=== PATIENT | male | born 1945 | race Caucasian/White ===

== ENCOUNTER 2019-01-01 10:06 | Inpatient (IN) | payer MEDICARE, OTHER ==
[~2019-01-01] VITALS: Ht 165.1 cm; Wt 84.0 kg
[~2019-01-01 10:06] MED LIST: AMLO5TAB66 PO; ASPI-482 PO; CARV3 PO; CLOP75TA3 PO; DOXA2TAB PO; GLIM4 PO; ROSU20TA23 PO; SITA100 PO; TRAM50TA4 PO
[2019-01-01] MEDS ORDERED: QUET50TA15 PO (10:34)
[2019-01-01 10:48] LABS: GLUCOSE,POINT OF CARE 250 MG/DL (70-110)
[2019-01-01 11:07] LABS: BASOPHILS % (AUTO) 0.7 % (0.0-2.0); EOSINOPHILS % (AUTO) 1.8 % (1.0-6.0); HEMATOCRIT 49.4 % (41-53); HEMOGLOBIN 16.8 g/dL (13.5-17.5); LYMPHOCYTES # (AUTO) 2.7 K/uL (1.0-4.8); MEAN CORPUSCULAR HEMOGLOBIN 31.1 pg (26.0-34.0); MEAN CORPUSCULAR VOLUME 92 fL (80-100); MONOCYTES # (AUTO) 0.7 K/uL (0.1-1.0); MONOCYTES % (AUTO) 7.4 % (2.0-9.0); NEUTROPHILS # (AUTO) 5.3 K/uL (1.8-7.7); NEUTROPHILS % (AUTO) 60.1 % (40.0-70.0); PLATELET COUNT (AUTO) 287 K/uL (150-450); RED BLOOD CELL COUNT(AUTO) 5.39 MIL/uL (4.50-5.90); RED CELL DISTRIBUTION WIDTH 14.1 % (11.5-14.5)
[2019-01-01 11:12] LABS: ANION GAP 11 mmol/L (8-16); CALCIUM, TOTAL 9.1 mg/dL (8.8-10.5); CARBON DIOXIDE 25 mmol/L (22-29); CHLORIDE 100 mmol/L (98-107); CREATININE 1.49 mg/dL (0.60-1.30); GLOMERULAR FILTR. RATE CALC 46 mL/min (>60); GLUCOSE,RANDOM 251 mg/dL (70-110); POTASSIUM 3.7 mmol/L (3.5-5.1); SODIUM SERUM 136 mmol/L (136-145); UREA NITROGEN, BLOOD 14 mg/dL (7-18)
[2019-01-01 11:27] LABS: ALANINE AMINOTRANSFERASE 21 U/L (12-78); ALBUMIN 3.4 g/dL (3.4-5.0); ALKALINE PHOSPHATASE 109 U/L (46-116); ASPARTATE AMINOTRANSFERASE 23 U/L (15-37); BILIRUBIN,TOTAL 1.3 mg/dL (0.1-1.0); THYROID STIMULATING HORMONE 6.94 uIU/mL (0.36-3.74); TOTAL PROTEIN, SERUM 8.1 g/dL (6.4-8.2)
[2019-01-01] MEDS ORDERED: IBUPROFEN 400 MG TABLET PO PRN ×2 (11:30→14:30)
[2019-01-01] MEDS ORDERED: HALOPERIDOL 5 MG TABLET PO PRN (11:30)
[2019-01-01] MEDS ORDERED: LORazepam 2 MG TABLET PO PRN (11:30)
[2019-01-01] MEDS ORDERED: ZOLPIDEM TARTRATE 10 MG TABLET PO PRN (11:30)
[2019-01-01] MEDS ORDERED: ACETAMINOPHEN 325 MG TABLET PO PRN ×2 (11:30→14:30)
[2019-01-01 12:28] LABS: GLUCOSE,POINT OF CARE 241 MG/DL (70-110)
[2019-01-01 13:02] VITALS: BP 138/88
[2019-01-01] MEDS ORDERED: PNEUMOCOCCAL VACCINE POLYVALENT 0.5 ML VIAL [PPSV23] IM ONE (13:30)
[2019-01-01] MEDS ORDERED: NICOTINE 14 MG/24 HOUR PATCH TD PRN (14:30)
[2019-01-01] MEDS ORDERED: ALBUTEROL SULFATE HFA 90 MCG/PUFF 8 GM INHALER IH PRN (14:30)
[2019-01-01] MEDS ORDERED: CloNIDine HCL 0.1 MG TABLET PO PRN (14:30)
[2019-01-01] MEDS ORDERED: MAGNESIUM HYDROXIDE SUSPENSION 30 ML UDCUP PO PRN (14:30)
[2019-01-01] MEDS ORDERED: DOCUSATE SODIUM 100 MG CAPSULE PO PRN (14:30)
[2019-01-01] MEDS ORDERED: GuaiFENesin/D-METHORPHAN [SUGAR-FREE] 200-20MG/10 ML SYRUP UDCUP PO PRN (14:30)
[2019-01-01] MEDS ORDERED: MAG HYDROX/AL HYDROX/SIMETH ES 30 ML SUSPENSION UDCUP PO PRN (14:30)
[2019-01-01] MEDS ORDERED: DEXTROSE 50%-WATER 25 GM/50 ML SYRINGE IVP PRN (14:30)
[2019-01-01] MEDS ORDERED: ONDANSETRON HCL 4 MG TABLET PO PRN (14:30)
[2019-01-01] MEDS ORDERED: LOPERAMIDE HCL 2 MG CAPSULE PO PRN (14:30)
[2019-01-01] MEDS ORDERED: PETROLATUM,WHITE 71 GM JELLY TP PRN (14:30)
[2019-01-01] MEDS: QUEtiapine FUMARATE 25 MG TABLET PO SCH (16:53)
[2019-01-01 17:17] VITALS: BP 157/99
[2019-01-01 17:18] LABS: GLUCOMETER DEV NAME(LOC) 3EX.; GLUCOSE,POINT OF CARE 252 MG/DL (70-110)
[2019-01-01 20:43] LABS: GLUCOMETER DEV NAME(LOC) 3EX.; GLUCOSE,POINT OF CARE 223 MG/DL (70-110)
[2019-01-02] VITALS: BP 159/110
[2019-01-02 06:12] LABS: BASOPHILS % (AUTO) 0.6 % (0.0-2.0); EOSINOPHILS % (AUTO) 2.3 % (1.0-6.0); HEMATOCRIT 47.1 % (41-53); HEMOGLOBIN 16.1 g/dL (13.5-17.5); LYMPHOCYTES # (AUTO) 2.7 K/uL (1.0-4.8); MEAN CORPUSCULAR HEMOGLOBIN 31.8 pg (26.0-34.0); MEAN CORPUSCULAR HGB CONC 34.2 G/dL (31.0-37.0); MEAN CORPUSCULAR VOLUME 93 fL (80-100); MONOCYTES # (AUTO) 0.8 K/uL (0.1-1.0); MONOCYTES % (AUTO) 9.2 % (2.0-9.0); NEUTROPHILS # (AUTO) 5.2 K/uL (1.8-7.7); NEUTROPHILS % (AUTO) 57.9 % (40.0-70.0); PLATELET COUNT (AUTO) 261 K/uL (150-450); RED BLOOD CELL COUNT(AUTO) 5.07 MIL/uL (4.50-5.90); RED CELL DISTRIBUTION WIDTH 13.7 % (11.5-14.5)
[2019-01-02 06:14] LABS: GLUCOMETER DEV NAME(LOC) 3EX.; GLUCOSE,POINT OF CARE 174 MG/DL (70-110)
[2019-01-02 06:38] LABS: BILIRUBIN,TOTAL 1.5 mg/dL (0.1-1.0); CALCIUM, TOTAL 9.1 mg/dL (8.8-10.5); CHOL/HDL RATIO 4.8 (4.2-7.3); CREATININE 1.45 mg/dL (0.60-1.30); POTASSIUM 3.5 mmol/L (3.5-5.1); THYROID STIMULATING HORMONE 3.98 uIU/mL (0.36-3.74); TOTAL PROTEIN, SERUM 7.4 g/dL (6.4-8.2)
[2019-01-02] MEDS: INSULIN LISPRO 100 UNITS/ML SQ PRN ×2 (07:01→11:27)
[2019-01-02 07:14] LABS: HEMOGLOBIN A1C 9.3 % (4.5-6.2)
[2019-01-02 08:00] VITALS: BP 119/70
[2019-01-02] MEDS: QUEtiapine FUMARATE 25 MG TABLET PO SCH ×4 (09:17→17:44)
[2019-01-02] MEDS: ESCITALOPRAM OXALATE 10 MG TABLET PO SCH (09:17)
[2019-01-02 11:43] LABS: GLUCOMETER DEV NAME(LOC) 3EX.; GLUCOSE,POINT OF CARE 239 MG/DL (70-110)
[2019-01-02 12:11] LABS: APPEARANCE,URINE CLEAR (CLEAR); BILIRUBIN,URINE NEGATIVE (NEGATIVE); GLUCOSE, URINE (UA) 250 mg/dL (NEGATIVE); KETONES,URINE NEGATIVE (NEGATIVE); LEUKOCYTE ESTERASE ,URINE NEGATIVE (NEGATIVE); NITRATE,URINE NEGATIVE (NEGATIVE); OCCULT BLOOD,URINE NEGATIVE (NEGATIVE); PH,URINE 6.5 (5.0-8.0); PROTEIN,URINE POS 1+ (NEGATIVE); UROBILINOGEN,URINE 0.2 mg/dL (<=1.0)
[2019-01-02 12:16] LABS: AMPHET/METH SCREEN,URINE NEGATIVE (NEGATIVE); BARBITURATE SCREEN, URINE NEGATIVE (NEGATIVE); BENZODIAZEPINES SCREEN,URINE NEGATIVE (NEGATIVE); CANNABINOID SCREEN,URINE NEGATIVE (NEGATIVE); COCAINE SCREEN,URINE NEGATIVE (NEGATIVE); METHADONE SCREEN, URINE NEGATIVE (NEGATIVE); OPIATE SCREEN,URINE NEGATIVE (NEGATIVE)
[2019-01-02 12:17] LABS: PHENCYCLIDINE SCREEN,URINE NEGATIVE (NEGATIVE)
[2019-01-02 13:28] LABS: BACTERIA,URINE Rare /HPF (None Seen); RBC,URINE 0-2 /HPF (0-2); SQUAMOUS EPITHELIAL CELL,UR Rare /LPF (None Seen); WBC,URINE 0-2 /HPF (0-5)
[2019-01-02 16:28] LABS: GLUCOMETER DEV NAME(LOC) 3EX.; GLUCOSE,POINT OF CARE 142 MG/DL (70-110)
[2019-01-02 16:47] VITALS: BP 117/79
[2019-01-02] MEDS: ROSUVASTATIN CALCIUM 20 MG TABLET PO SCH (20:58)
[2019-01-02] MEDS: DOXAZOSIN MESYLATE 2 MG TABLET PO SCH (20:58)
[2019-01-02 21:03] LABS: GLUCOMETER DEV NAME(LOC) 3EX.; GLUCOSE,POINT OF CARE 232 MG/DL (70-110)
[2019-01-03] MEDS ORDERED: PNEUMOCOCCAL VACCINE POLYVALENT 0.5 ML VIAL [PPSV23] IM ONE (06:15)
[2019-01-03 06:34] LABS: GLUCOMETER DEV NAME(LOC) 3EX.; GLUCOSE,POINT OF CARE 177 MG/DL (70-110)
[2019-01-03] MEDS: INSULIN LISPRO 100 UNITS/ML SQ PRN ×2 (07:13→12:05)
[2019-01-03] MEDS: GLIMEPIRIDE 4 MG TABLET PO SCH (07:14)
[2019-01-03 09:41] VITALS: BP 141/100
[2019-01-03] MEDS: SitaGLIPtin PHOSPHATE 100 MG TABLET PO SCH (09:56)
[2019-01-03] MEDS: ESCITALOPRAM OXALATE 10 MG TABLET PO SCH (09:56)
[2019-01-03] MEDS: CLOPIDOGREL BISULFATE 75 MG TABLET PO SCH (09:56)
[2019-01-03] MEDS: AmLODIPine BESYLATE 5 MG TABLET PO SCH (09:57)
[2019-01-03] MEDS: CARVEDILOL 3.125 MG TABLET PO SCH (09:57)
[2019-01-03] MEDS: QUEtiapine FUMARATE 25 MG TABLET PO SCH ×3 (09:57→16:39)
[2019-01-03] MEDS: ASPIRIN 81 MG CHEWABLE TABLET PO SCH (09:58)
[2019-01-03 11:59] LABS: GLUCOMETER DEV NAME(LOC) 3EX.; GLUCOSE,POINT OF CARE 235 MG/DL (70-110)
[2019-01-03 16:28] LABS: GLUCOMETER DEV NAME(LOC) 3EX.; GLUCOSE,POINT OF CARE 138 MG/DL (70-110)
[2019-01-03 16:50] VITALS: BP 133/79
[2019-01-03 20:29] LABS: GLUCOMETER DEV NAME(LOC) 3EX.; GLUCOSE,POINT OF CARE 179 MG/DL (70-110)
[2019-01-03] MEDS: DOXAZOSIN MESYLATE 2 MG TABLET PO SCH (20:45)
[2019-01-03] MEDS: ROSUVASTATIN CALCIUM 20 MG TABLET PO SCH (20:45)
[2019-01-04 05:30] LABS: GLUCOMETER DEV NAME(LOC) 3E.I; GLUCOSE,POINT OF CARE 156 MG/DL (70-110)
[2019-01-04] MEDS: GLIMEPIRIDE 4 MG TABLET PO SCH (06:30)
[2019-01-04] MEDS: INSULIN LISPRO 100 UNITS/ML SQ PRN (06:33)
[2019-01-04 09:10] VITALS: BP 110/73
[2019-01-04] MEDS: CARVEDILOL 3.125 MG TABLET PO SCH (09:23)
[2019-01-04] MEDS: SitaGLIPtin PHOSPHATE 100 MG TABLET PO SCH (09:23)
[2019-01-04] MEDS: AmLODIPine BESYLATE 5 MG TABLET PO SCH (09:24)
[2019-01-04] MEDS: ESCITALOPRAM OXALATE 10 MG TABLET PO SCH (09:24)
[2019-01-04] MEDS: CLOPIDOGREL BISULFATE 75 MG TABLET PO SCH (09:24)
[2019-01-04] MEDS: ASPIRIN 81 MG CHEWABLE TABLET PO SCH (11:31)
[2019-01-04 16:28] LABS: GLUCOMETER DEV NAME(LOC) 3EX.; GLUCOSE,POINT OF CARE 96 MG/DL (70-110)
[2019-01-04] MEDS: QUEtiapine FUMARATE 25 MG TABLET PO SCH (16:32)
[2019-01-04 16:44] VITALS: BP 112/66
[2019-01-04] MEDS: ROSUVASTATIN CALCIUM 20 MG TABLET PO SCH (20:39)
[2019-01-04] MEDS: DOXAZOSIN MESYLATE 2 MG TABLET PO SCH (20:39)
[2019-01-04 20:41] VITALS: BP 135/84
[2019-01-04 21:03] LABS: GLUCOMETER DEV NAME(LOC) 3EX.; GLUCOSE,POINT OF CARE 122 MG/DL (70-110)
[2019-01-05 01:30] VITALS: BP 123/82
[2019-01-05 06:29] LABS: GLUCOMETER DEV NAME(LOC) 3E.I; GLUCOSE,POINT OF CARE 95 MG/DL (70-110)
[2019-01-05] MEDS: GLIMEPIRIDE 4 MG TABLET PO SCH (06:51)
[2019-01-05 08:00] VITALS: BP 117/84
[2019-01-05] MEDS: CLOPIDOGREL BISULFATE 75 MG TABLET PO SCH (08:27)
[2019-01-05] MEDS: QUEtiapine FUMARATE 25 MG TABLET PO SCH ×2 (08:27→16:38)
[2019-01-05] MEDS: AmLODIPine BESYLATE 5 MG TABLET PO SCH (08:27)
[2019-01-05] MEDS: SitaGLIPtin PHOSPHATE 100 MG TABLET PO SCH (08:27)
[2019-01-05] MEDS: ESCITALOPRAM OXALATE 10 MG TABLET PO SCH (08:27)
[2019-01-05] MEDS: CARVEDILOL 3.125 MG TABLET PO SCH (08:27)
[2019-01-05 11:39] LABS: GLUCOMETER DEV NAME(LOC) 3E.I; GLUCOSE,POINT OF CARE 75 MG/DL (70-110)
[2019-01-05] MEDS: ASPIRIN 81 MG CHEWABLE TABLET PO SCH (12:14)
[2019-01-05] MEDS: INSULIN LISPRO 100 UNITS/ML SQ PRN ×2 (12:21→20:31)
[2019-01-05 16:29] VITALS: BP 111/75
[2019-01-05 16:49] LABS: GLUCOMETER DEV NAME(LOC) 3EX.; GLUCOSE,POINT OF CARE 87 MG/DL (70-110)
[2019-01-05] MEDS: DOXAZOSIN MESYLATE 2 MG TABLET PO SCH (20:19)
[2019-01-05] MEDS: ROSUVASTATIN CALCIUM 20 MG TABLET PO SCH (20:19)
[2019-01-05 20:31] VITALS: BP 130/78
[2019-01-05 20:34] LABS: GLUCOMETER DEV NAME(LOC) 3EX.; GLUCOSE,POINT OF CARE 164 MG/DL (70-110)
[2019-01-06 02:14] VITALS: BP 124/78
[2019-01-06 05:34] LABS: GLUCOMETER DEV NAME(LOC) 3E.I; GLUCOSE,POINT OF CARE 85 MG/DL (70-110)
[2019-01-06] MEDS: GLIMEPIRIDE 4 MG TABLET PO SCH (06:35)
[2019-01-06 08:05] VITALS: BP 116/71
[2019-01-06] MEDS: CLOPIDOGREL BISULFATE 75 MG TABLET PO SCH (09:01)
[2019-01-06] MEDS: ESCITALOPRAM OXALATE 10 MG TABLET PO SCH (09:01)
[2019-01-06] MEDS: SitaGLIPtin PHOSPHATE 100 MG TABLET PO SCH (09:01)
[2019-01-06] MEDS: AmLODIPine BESYLATE 5 MG TABLET PO SCH (09:01)
[2019-01-06] MEDS: CARVEDILOL 3.125 MG TABLET PO SCH (09:01)
[2019-01-06] MEDS: QUEtiapine FUMARATE 25 MG TABLET PO SCH ×2 (09:01→16:23)
[2019-01-06 11:08] LABS: GLUCOMETER DEV NAME(LOC) 3EX.; GLUCOSE,POINT OF CARE 86 MG/DL (70-110)
[2019-01-06] MEDS: ASPIRIN 81 MG CHEWABLE TABLET PO SCH (12:41)
[2019-01-06 16:16] VITALS: BP 109/67
[2019-01-06 16:44] LABS: GLUCOMETER DEV NAME(LOC) 3EX.; GLUCOSE,POINT OF CARE 94 MG/DL (70-110)
[2019-01-06 20:24] LABS: GLUCOMETER DEV NAME(LOC) 3EX.; GLUCOSE,POINT OF CARE 155 MG/DL (70-110)
[2019-01-06] MEDS: ROSUVASTATIN CALCIUM 20 MG TABLET PO SCH (20:28)
[2019-01-06] MEDS: DOXAZOSIN MESYLATE 2 MG TABLET PO SCH (20:28)
[2019-01-06] MEDS: INSULIN LISPRO 100 UNITS/ML SQ PRN (20:38)
[2019-01-07 05:29] LABS: GLUCOMETER DEV NAME(LOC) 3E.I; GLUCOSE,POINT OF CARE 74 MG/DL (70-110)
[2019-01-07] MEDS: GLIMEPIRIDE 4 MG TABLET PO SCH (07:16)
[2019-01-07] MEDS: SitaGLIPtin PHOSPHATE 100 MG TABLET PO SCH (07:45)
[2019-01-07] MEDS: ESCITALOPRAM OXALATE 20 MG TABLET PO SCH (07:45)
[2019-01-07] MEDS: CLOPIDOGREL BISULFATE 75 MG TABLET PO SCH (07:45)
[2019-01-07] MEDS: CARVEDILOL 3.125 MG TABLET PO SCH (07:46)
[2019-01-07] MEDS: AmLODIPine BESYLATE 5 MG TABLET PO SCH (07:47)
[2019-01-07] MEDS: QUEtiapine FUMARATE 25 MG TABLET PO SCH ×2 (07:47→16:22)
[2019-01-07 08:22] VITALS: BP 133/87
[2019-01-07] MEDS: ASPIRIN 81 MG CHEWABLE TABLET PO SCH (11:46)
[2019-01-07 11:53] LABS: GLUCOMETER DEV NAME(LOC) 3EX.; GLUCOSE,POINT OF CARE 54 MG/DL (70-110)
[2019-01-07 13:13] LABS: GLUCOMETER DEV NAME(LOC) 3EX.; GLUCOSE,POINT OF CARE 164 MG/DL (70-110)
[2019-01-07] MEDS: INSULIN LISPRO 100 UNITS/ML SQ PRN ×2 (13:13→20:48)
[2019-01-07 16:44] LABS: GLUCOMETER DEV NAME(LOC) 3EX.; GLUCOSE,POINT OF CARE 71 MG/DL (70-110)
[2019-01-07 16:48] VITALS: BP_SYST 109; BP_SYST 122; BP_DIAS 68; BP_DIAS 76
[2019-01-07] MEDS: ROSUVASTATIN CALCIUM 20 MG TABLET PO SCH (20:33)
[2019-01-07] MEDS: DOXAZOSIN MESYLATE 2 MG TABLET PO SCH (20:33)
[2019-01-07 20:39] LABS: GLUCOMETER DEV NAME(LOC) 3EX.; GLUCOSE,POINT OF CARE 230 MG/DL (70-110)
[2019-01-08 02:08] VITALS: BP 131/74
[2019-01-08 06:38] LABS: GLUCOMETER DEV NAME(LOC) 3E.I; GLUCOSE,POINT OF CARE 84 MG/DL (70-110)
[2019-01-08] MEDS: INSULIN LISPRO 100 UNITS/ML SQ PRN (06:42)
[2019-01-08] MEDS: GLIMEPIRIDE 4 MG TABLET PO SCH (07:07)
[2019-01-08 08:28] VITALS: BP 113/76
[2019-01-08] MEDS: CLOPIDOGREL BISULFATE 75 MG TABLET PO SCH (09:33)
[2019-01-08] MEDS: ESCITALOPRAM OXALATE 20 MG TABLET PO SCH (09:33)
[2019-01-08] MEDS: SitaGLIPtin PHOSPHATE 100 MG TABLET PO SCH (09:33)
[2019-01-08] MEDS: QUEtiapine FUMARATE 25 MG TABLET PO SCH ×2 (09:33→16:26)
[2019-01-08] MEDS: CARVEDILOL 3.125 MG TABLET PO SCH (09:33)
[2019-01-08] MEDS: AmLODIPine BESYLATE 5 MG TABLET PO SCH (09:33)
[2019-01-08 11:59] LABS: GLUCOMETER DEV NAME(LOC) 3EX.; GLUCOSE,POINT OF CARE 81 MG/DL (70-110)
[2019-01-08] MEDS: ASPIRIN 81 MG CHEWABLE TABLET PO SCH (12:46)
[2019-01-08] MEDS ORDERED: ESCI20TA PO ×2 (16:28→16:29)
[2019-01-08] MEDS ORDERED: QUET25TA PO (16:30)
[2019-01-08 16:39] LABS: GLUCOMETER DEV NAME(LOC) 3EX.; GLUCOSE,POINT OF CARE 73 MG/DL (70-110)
== END 2019-01-08 20:00 | disposition home or self-care (01) | DRG 885 ==
LOC: EMS 10:06 → 3EX 12:16
PROVIDERS: ADMIT Psychiatry & Neurology Child & Adolescent Psychiatry; ATTEND Psychiatry & Neurology Child & Adolescent Psychiatry
DX: F33.2 Major depressive disorder, recurrent severe without psychotic features (principal); E78.5 Hyperlipidemia, unspecified; E78.00 Pure hypercholesterolemia, unspecified; E11.9 Type 2 diabetes mellitus without complications; G47.00 Insomnia, unspecified; I10 Essential (primary) hypertension; I25.10 Atherosclerotic heart disease of native coronary artery without angina pectoris; Z95.5 Presence of coronary angioplasty implant and graft; F41.9 Anxiety disorder, unspecified; N40.0 Benign prostatic hyperplasia without lower urinary tract symptoms; Z79.02 Long term (current) use of antithrombotics/antiplatelets; Z86.73 Personal history of transient ischemic attack (TIA), and cerebral infarction without residual deficits; Z91.14 Patient's other noncompliance with medication regimen; F22 Delusional disorders
CPT/HCPCS: 80307; 83036; 84443; 96372; G0378; G0480

== ENCOUNTER 2021-03-06 11:11 | Emergency (ER) | payer MEDICARE, MEDICAID ==
[~2021-03-06] VITALS: Ht 170.2 cm; Wt 72.8 kg
[~2021-03-06 11:11] MED LIST changes: -CLOP75TA3 PO; +CLOP75TA60 PO; +ESCI20TA87 PO; +QUET25TA PO; -ROSU20TA23 PO; +ROSU20TA73 PO; -TRAM50TA4 PO
[2021-03-06] MEDS ORDERED: ATOR20TA86 PO (11:31)
[2021-03-06] MEDS ORDERED: MIRT-89 PO (11:31)
[2021-03-06] MEDS ORDERED: TAMS-13 PO (11:31)
[2021-03-06] MEDS ORDERED: MELA5TAB3 PO (11:31)
[2021-03-06] MEDS ORDERED: ARIP2TAB27 PO (11:31)
[2021-03-06] MEDS ORDERED: CHOL100044 PO (11:31)
[2021-03-06 11:39] LABS: GLUCOSE,POINT OF CARE 98 MG/DL (70-110)
[2021-03-06 11:45] LABS: BASOPHILS % (AUTO) 0.3 % (0.0-2.0); EOSINOPHILS % (AUTO) 3.4 % (1.0-6.0); HEMATOCRIT 33.6 % (41-53); LYMPHOCYTES # (AUTO) 2.4 K/uL (1.0-4.8); LYMPHOCYTES % (AUTO) 33.7 % (22.0-44.0); MEAN CORPUSCULAR HEMOGLOBIN 29.9 pg (26.0-34.0); MEAN CORPUSCULAR HGB CONC 32.8 G/dL (31.0-37.0); MEAN CORPUSCULAR VOLUME 91 fL (80-100); MONOCYTES # (AUTO) 0.5 K/uL (0.1-1.0); MONOCYTES % (AUTO) 7.1 % (2.0-9.0); NEUTROPHILS # (AUTO) 3.9 K/uL (1.8-7.7); NEUTROPHILS % (AUTO) 55.5 % (40.0-70.0); PLATELET COUNT (AUTO) 258 K/uL (150-450); RED BLOOD CELL COUNT(AUTO) 3.68 MIL/uL (4.50-5.90); RED CELL DISTRIBUTION WIDTH 15.5 % (11.5-14.5)
[2021-03-06 11:54] LABS: ANION GAP 6 mmol/L (8-16); CARBON DIOXIDE 30 mmol/L (22-29); CHLORIDE 103 mmol/L (98-107); CREATININE 1.06 mg/dL (0.60-1.30); GLUCOSE,RANDOM 104 mg/dL (70-110); POTASSIUM 4.1 mmol/L (3.5-5.1); SODIUM SERUM 139 mmol/L (136-145); UREA NITROGEN, BLOOD 25 mg/dL (7-18)
[2021-03-06 11:57] LABS: GLOMERULAR FILTR. RATE CALC > 60 mL/min (>60)
[2021-03-06 11:59] LABS: ALANINE AMINOTRANSFERASE 25 U/L (12-78); ALBUMIN 3.3 g/dL (3.4-5.0); ALKALINE PHOSPHATASE 127 U/L (46-116); ASPARTATE AMINOTRANSFERASE 17 U/L (15-37); BILIRUBIN,TOTAL 0.5 mg/dL (0.1-1.0); TOTAL PROTEIN, SERUM 7.7 g/dL (6.4-8.2)
[2021-03-06 12:06] LABS: B-TYPE NATRIURETIC PEPTIDE 78 pg/mL (0-100)
[2021-03-06 12:45] VITALS: BP 119/80
== END 2021-03-06 13:55 | disposition home or self-care (01) ==
LOC: EMS 11:55
DX: R06.00 Dyspnea, unspecified (principal); I10 Essential (primary) hypertension; E11.9 Type 2 diabetes mellitus without complications; E78.00 Pure hypercholesterolemia, unspecified; Z66 Do not resuscitate; Z79.899 Other long term (current) drug therapy
CPT/HCPCS: 71045; 80053; 82962; 83880; 84484; 85025; 85610; 85730; 93005; 99285